=== PATIENT | male | born 1995 | race Caucasian/White ===

== ENCOUNTER 2022-08-26 15:17 | Emergency (ER) | payer BC ==
[2022-08-26] MEDS ORDERED: Ketorolac 30 MG/ML SDV IVPUSH ONE (15:33)
[2022-08-26] MEDS ORDERED: Sodium Chloride 0.9% 1,000 ML IV ONE (15:33)
[2022-08-26] MEDS ORDERED: Ondansetron 4 MG/2 ML SDV IVPUSH ONE (15:33)
[2022-08-26 16:27] LABS: CARBON DIOXIDE,CO2 25.6 mmol/L (21.0-32.0)
== END 2022-08-26 16:46 | disposition home or self-care (01) ==
LOC: MW.ED 15:17
DX: N13.2 Hydronephrosis with renal and ureteral calculous obstruction (principal); Z88.0 Allergy status to penicillin; Z88.8 Allergy status to other drugs, medicaments and biological substances
CPT/HCPCS: 36415; 74176; 80053; 81001; 83690; 85025; 96361; 96374; 96375; 99284; J1885; J2405; J7030

== ENCOUNTER 2024-08-04 16:57 | Emergency (ER) | payer SELFPAY ==
[~2024-08-04 16:57] MED LIST: Ondansetron 4 MG/2 ML SDV ONE; fentaNYL 100 MCG/2 ML SDV ONE
[2024-08-04] MEDS: Sodium Chloride 0.9% 1,000 ML IV ONE ×2 (17:00→18:39)
[2024-08-04] MEDS ORDERED: Sodium Chloride 0.9% 2.5 ML Syringe FLUSH PRN (17:01)
[2024-08-04] MEDS ORDERED: Sodium Chloride 0.9% 20 ML SDV IV PRN (17:01)
[2024-08-04] MEDS: fentaNYL 100 MCG/2 ML SDV IVPUSH ONE (17:01)
[2024-08-04] MEDS: Ondansetron 4 MG/2 ML SDV IVPUSH ONE ×2 (17:01→20:33)
[2024-08-04] MEDS ORDERED: Sodium Chloride 0.9% 10 ML Syringe FLUSH PRN (17:01)
[2024-08-04] MEDS: HYDROmorphone 1 MG/ML Syringe ONE (17:09)
[2024-08-04] MEDS: Ondansetron 4 MG/2 ML SDV IVPUSH STA (17:10)
[2024-08-04] MEDS: HYDROmorphone 1 MG/ML Syringe IVPUSH STA (17:10)
[2024-08-04] MEDS: Ondansetron 4 MG/2 ML SDV ONE (17:10)
[2024-08-04 18:18] LABS: LACTIC ACID 3.2 mmol/L (0.4-2.0)
[2024-08-04 18:19] LABS: BASOPHILS ABSOLUTE AUTO 0.04 K/uL (0.00-0.20); BASOPHILS PERCENT AUTO 0.4 % (0.0-1.0); EOSINOPHILS ABSOLUTE AUTO 0.11 K/uL (0.00-0.45); HEMATOCRIT 42.6 % (42.0-52.0); HEMOGLOBIN 15.1 g/dL (14.0-18.0); IMMATURE GRAN ABSOLUTE AUTO 0.02 K/uL (0.00-0.05); IMMATURE GRAN PERCENT AUTO 0.2 % (0.0-0.4); LYMPHOCYTES ABSOLUTE AUTO 3.48 K/uL (1.00-4.80); LYMPHOCYTES PERCENT AUTO 32.9 % (24.0-44.0); MEAN CORPUSCULAR HEMOGLOBIN 30.9 pg (28.0-32.0); MEAN CORPUSCULAR HGB CONC 35.4 g/dL (32.0-36.0); MEAN CORPUSCULAR VOLUME 87.3 fL (83.0-99.0); MEAN PLATELET VOLUME 9.2 fL (9.4-12.4); MONOCYTES ABSOLUTE AUTO 0.85 K/uL (0.00-0.80); NEUTROPHILS ABSOLUTE AUTO 6.08 K/uL (1.80-7.70); NEUTROPHILS PERCENT AUTO 57.5 % (41.0-71.0); PLATELET COUNT,PLT 443 K/uL (150-400); RED BLOOD CELL COUNT 4.88 M/uL (4.52-5.90); WHITE BLOOD CELL COUNT,WBC 10.58 K/uL (3.9-11.3)
[2024-08-04 18:28] LABS: INR 0.97 (0.86-1.11); PTT,PARTIAL THROMBOPLSTIN TIME 26.2 SEC (23.9-30.7)
[2024-08-04 18:33] LABS: ALANINE AMINOTRANSFERASE,ALT 22 IU/L (14-63); ALBUMIN 3.8 g/dL (3.4-5.0); ALKALINE PHOSPHATASE 97 U/L (46-116); ASPARTATE AMNIOTRANSFERASE,AST 26 IU/L (15-37); BILIRUBIN TOTAL 0.3 mg/dL (0.2-1.0); BLOOD UREA NITROGEN,BUN 11 mg/dL (7.0-18.0); CALCIUM 8.6 mg/dL (8.5-10.1); CHLORIDE,CL 103 mmol/L (98-107); CREATINE KINASE,CK 153 U/L (26-308); CREATININE 1.2 mg/dL (0.8-1.3); GLUCOSE RANDOM 109 mg/dL (74-106); LIPASE 28 U/L (16-77); MAGNESIUM 1.6 mg/dL (1.8-2.4); POTASSIUM,K 3.4 mmol/L (3.5-5.1); PROTEIN TOTAL,TP 7.7 g/dL (6.4-8.2); SODIUM,NA 140 mmol/L (136-148)
[2024-08-04 18:36] LABS: ESTIMATED GFR 84 mL/min (>60)
[2024-08-04 18:50] LABS: APPEARANCE,URINE CLEAR; BILIRUBIN,URINE NEGATIVE (NEGATIVE); COLOR,URINE YELLOW; GLUCOSE,URINE NEGATIVE (NEGATIVE); KETONES,URINE NEGATIVE (NEGATIVE); LEUKOCYTE ESTERASE,URINE NEGATIVE (NEGATIVE); NITRITE,URINE NEGATIVE (NEGATIVE); OCCULT BLOOD,URINE NEGATIVE (NEGATIVE); PROTEIN,URINE NEGATIVE (NEGATIVE); UROBILINOGEN,URINE 0.2 EU/dL (<2.0)
[2024-08-04] MEDS: Iopamidol 755 MG/ML 500 ML Multipack Bottle IVPUSH STA (19:22)
[2024-08-04] MEDS: fentaNYL 50 MCG/ML SDV IVPUSH STA (19:54)
[2024-08-04] MEDS: fentaNYL 100 MCG/2 ML SDV IVPUSH STA (20:21)
[2024-08-04] MEDS: Magnesium Sulfat/D5W 1GM/100ML 1 GM in Premix Bag 1 BAG IV ONE (20:33)
[2024-08-05] MEDS: HYDROmorphone 1 MG/ML Syringe IVPUSH ONE (00:17)
[2024-08-05] MEDS ORDERED: Cyclobenzaprine 10 MG Tab PO ONE (00:20)
== END 2024-08-05 01:36 ==
LOC: MW.ED 16:57
DX: S82.142A Displaced bicondylar fracture of left tibia, initial encounter for closed fracture (principal); S06.0X1A Concussion with loss of consciousness of 30 minutes or less, initial encounter; S77.12XA Crushing injury of left thigh, initial encounter; Z88.0 Allergy status to penicillin; Z91.013 Allergy to seafood; Z88.8 Allergy status to other drugs, medicaments and biological substances; W20.8XXA Other cause of strike by thrown, projected or falling object, initial encounter; Y93.89 Activity, other specified
CPT/HCPCS: 36415; 70450; 71045; 71260; 72125; 72128; 72131; 73590; 73620; 73700; 74177; 80053; 81003; 82550; 83605; 83690; 83735; 84484; 85025; 85610; 85730; 86850; 86900; 86901; 87040; 87077; 87186; 93005; 96361; 96365; 96375; 96376; 99285; J1171; J2405; J3010; J3475; J7030; Q9967; 93010